=== PATIENT | female | born 1985 | race Caucasian/White ===

== ENCOUNTER → 2021-08-22 | Outpatient (CLI) | payer OTHER ==
--- NOTE | 2021-08-22 09:47 | US ---
EXAMINATION TYPE: US abdomen complete DATE OF EXAM: 08/22/2021 COMPARISON: NONE CLINICAL HISTORY: R74.8 Elevated Liver enzymes. EXAM MEASUREMENTS: Liver Length: 19.7 cm Gallbladder Wall: Surgically absent cm CBD: 1.0 cm Spleen: 12.0 x 4.0 cm Right Kidney: 12.4 x 6.4 x 4.3 cm Left Kidney: 11.9 x 6.0 x 5.5 cm Pancreas: wnl Liver: Increased attenuation Gallbladder: Surgically absent Evidence for sonographic Anand's sign: No CBD: wnl Spleen: wnl Right Kidney: No hydronephrosis or masses seen Left Kidney: No hydronephrosis or masses seen Upper IVC: wnl Abd Aorta: wnl The intrahepatic portion of the IVC and proximal abdominal aorta are within normal limits. There is no evidence of cholelithiasis. Common bile duct is unremarkable. The visualized portions of the torres creas are homogenous. The spleen is unremarkable. Kidneys are symmetric and free of hydronephrosis. No renal lesions are seen. IMPRESSION: Hepatic steatosis.
== END | disposition home or self-care (01) ==
LOC: RADUSWWP 08:28
PROVIDERS: ATTEND Family Medicine
DX: K76.0 Fatty (change of) liver, not elsewhere classified (principal); R74.8 Abnormal levels of other serum enzymes
CPT/HCPCS: 76700

== ENCOUNTER 2024-01-24 13:42 | Emergency (ER) | payer OTHER ==
--- NOTE | 2024-01-24 14:16 | ED ---
Skin/Abscess/FB HPI - General Chief complaint: Skin/Abscess/Foreign Body Stated complaint: L eye issue Time Seen by Provider: 01/24/24 13:59 Source: patient, RN notes reviewed Mode of arrival: ambulatory Limitations: no limitations - History of Present Illness Initial comments: This is a 38-year-old female presents emergency department for left eyelid sw elling and redness. Patient states that she noticed the swelling form about 2 days ago when she woke up this morning she had a difficult time opening her eye. Patient has a abscess on her left forehead which she has tried extracting at home. She denies photophobia, decrease in visual acuity, pain with extraocular eye movement, headaches, eye pressure, vomiting. Patient endorses nausea however states she took an at home test today that was positive. She wears contacts. - Related Data Previous Rx's Medication Instructions Recorded Amoxicillin 875 mg PO Q12HR #20 tablet 01/24/24 clindamycin HCL 300 mg PO QID #40 cap 01/24/24 Allergies Allergy/AdvReac Type Severity Reaction Status Date / Time acetaminophen [From Vicodin] AdvReac Nausea & Verified 01/24/24 14:30 Vomiting hydrocodone [From Vicodin] AdvReac Nausea & Verified 01/24/24 14:30 Vomiting Review of Systems ROS Statement: Those systems with pertinent positive or pertinent negative responses have been documented in the HPI. ROS Other: All systems not noted in ROS Statement are negative. Past Medical History Past Medical History: Diabetes Mellitus, Hyperlipidemia, Hypertension Past Surgical History: Cholecystectomy Past Psychological History: Anxiety, Depression Smoking Status: Current every day smoker General Exam Limitations: no limitations General appearance: alert, in no apparent distress Head exam: Present: atraumatic, normocephalic, normal inspection Expanded Eyelids: Erythema: Left (periorbital swelling), Swelling: Left Pupils: Regular, Round: Bilateral, Reactive: Bilateral Visual acuity (R) = 20/: 20 Visual acuity (L) = 20/: 20 ENT exam: Present: normal exam, mucous membranes moist Neck exam: Present: normal inspection. Absent: tenderness, meningismus, lymphadenopathy Respiratory exam: Present: normal lung sounds bilaterally. Absent: respiratory distress, wheezes, rales, rhonchi, stridor Cardiovascular Exam: Present: regular rate, normal rhythm, normal heart sounds. Absent: systolic murmur, diastolic murmur, rubs, gallop, clicks GI/Abdominal exam: Present: soft, normal bowel sounds. Absent: distended, tenderness, guarding, rebound, rigid Extremities exam: Present: normal inspection, full ROM, normal capillary refill. Absent: tenderness, pedal edema, joint swelling, calf tenderness Back exam: Present: normal inspection Neurological exam: Present: alert, oriented X3, CN II-XII intact Psychiatric exam: Present: normal affect, normal mood Skin exam: Present: warm, dry, intact, other (acne on the anterior left forehead) Course Vital Signs 01/24/24 13:57 Temperature 98.1 F Pulse Rate 99 Respiratory 20 Rate Blood Pressure 140/92 O2 Sat by Pulse 99 Oximetry Medical Decision Making - Medical Decision Making Was pt. sent in by a medical professional or institution (LEONIDES Mendoza, CONCRETE FORM SETTER, urgent care, hospital, or shelter...) When possible be specific @ -No Did you speak to anyone other than the patient for history (EMS, parent, family, police, friend...)? What history was obtained from this source @ -No Did you review nursing and triage notes (agree or disagree)? Why? @ -I reviewed and agree with nursing and triage notes Were old charts reviewed (outside hosp., previous admission, EMS record, old EKG, old radiological studies, urgent care reports/EKG's, shelter records)? Report findings @ -No old charts were reviewed Differential Diagnosis (chest pain, altered mental status, abdominal pain women, abdominal pain men, vaginal bleeding, weakness, fever, dyspnea, syncope, headache, dizziness, GI bleed, back pain, seizure, CVA, palpatations, mental health, musculoskeletal)? @ -Orbital cellulitis, preseptal cellulitis, superficial skin infection, acne, this is not an all-inclusive list. EKG interpreted by me (3pts min.). @ -none X-rays interpreted by me (1pt min.). @ -None done CT interpreted by me (1pt min.). @ -None done U/S interpreted by me (1pt. min.). @ -None done What testing was considered but not performed or refused? (CT, X-rays, U/S, labs)? Why? @ -None What meds were considered but not given or refused? Why? @ -None Did you discuss the management of the patient with other professionals (professionals i.e. , PA, CONCRETE FORM SETTER, lab, RT, psych nurse, social security benefits interviewer, wage analyst, teacher, certification officer, case briefer)? Give summary @ -No Was smoking cessation discussed for >3mins.? @ -No Was critical care preformed (if so, how long)? @ -No Were there social determinants of health that impacted care today? How? (Homelessness, low income, unemployed, alcoholism, drug addiction, transportation, low edu. Level, literacy, decrease access to med. care, group home, rehab)? @ -No Was there de-escalation of care discussed even if they declined (Discuss DNR or withdrawal of care, Hospice)? DNR status @ -No What co-morbidities impacted this encounter? (DM, HTN, Smoking, COPD, CAD, Cancer, CVA, ARF, Chemo, Hep., AIDS, mental health diagnosis, sleep apnea, morbid obesity)? @ -None Was patient admitted / discharged? Hospital course, mention meds given and route, prescriptions, significant lab abnormalities, going to OR and other pertinent info. @ -Discharged. 38-year-old female with complaint of left eye swelling. On examination patient noted to have periorbital edema and erythema on the anterior and lower eyelids. Visual acuity 20/20 bilaterally. Patient pupils are equal and reactive additionally there is no pain with extraocular movement or pain with globe pressure. Patient's laboratory results unremarkable for acute signs of infection. Due to patient reporting a positive at-home test CT of the head was deferred at this time. Strict return parameters discussed with the patient. Recommend that she follows with her primary care provider within the next 2 to 3 days for further evaluation. Patient will be sent home with clindamycin and amoxicillin for periorbital cellulitis. Patient is in agreement with this. Plan discussed with Dr. Weber Undiagnosed new problem with uncertain prognosis? @ -No Drug Therapy requiring intensive monitoring for toxicity (Heparin, Nitro, Insulin, Cardizem)? @ -No Were any procedures done? @ -No Diagnosis periorbital cellulitis Acute, or Chronic, or Acute on Chronic? @ -acute Uncomplicated (without systemic symptoms) or Complicated (systemic symptoms)? @ -uncomplicated Side effects of treatment? @ -No Exacerbation, Progression, or Severe Exacerbation? @ -No Poses a threat to life or bodily function? How? (Chest pain, [place], [place], pneumonia, PE, COPD, DKA, ARF, appy, cholecystitis, CVA, Diverticulitis, Homicidal, Suicidal, threat to staff... and all critical care pts) @ -No - Lab Data Result diagrams: 01/24/24 14:50 01/24/24 14:50 Lab Results 01/24/24 01/24/24 Range/Units 14:50 14:50 WBC 8.5 (3.8-10.6) k/uL RBC 4.55 (3.80-5.40) m/uL Hgb 12.5 (11.4-16.0) gm/dL Hct 38.9 (34.0-46.0) % MCV 85.5 (80.0-100.0) fL MCH 27.6 (25.0-35.0) pg MCHC 32.2 (31.0-37.0) g/dL RDW 13.8 (11.5-15.5) % Plt Count 314 (150-450) k/uL MPV 8.1 Neutrophils % 69 % Lymphocytes % 22 % Monocytes % 6 % Eosinophils % 1 % Basophils % 1 % Neutrophils # 5.8 (1.3-7.7) k/uL Lymphocytes # 1.9 (1.0-4.8) k/uL Monocytes # 0.5 (0-1.0) k/uL Eosinophils # 0.1 (0-0.7) k/uL Basophils # 0.1 (0-0.2) k/uL Sodium 134 L (137-145) mmol/L Potassium 3.9 (3.5-5.1) mmol/L Chloride 102 (98-107) mmol/L Carbon Dioxide 24 (22-30) mmol/L Anion Gap 8 mmol/L BUN 9 (7-17) mg/dL Creatinine 0.53 (0.52-1.04) mg/dL Est GFR (CKD-EPI)AfAm >90 (>60 ml/min/1.73 sqM) Est GFR (CKD-EPI)NonAf >90 (>60 ml/min/1.73 sqM) Glucose 296 H (74-99) mg/dL Calcium 8.4 (8.4-10.2) mg/dL Total Bilirubin 0.5 (0.2-1.3) mg/dL AST 35 (14-36) U/L ALT 38 H (4-34) U/L Alkaline Phosphatase 92 (38-126) U/L Total Protein 6.3 (6.3-8.2) g/dL Albumin 3.5 (3.5-5.0) g/dL Disposition Clinical Impression: Periorbital cellulitis Narrative: Please return to the Emergency Department if symptoms worsen or any other concerns. Complete full course of both antibiotics as prescribed. Recommend follow-up with your primary care provider within the next 2 to 3 days for further evaluation. Disposition: HOME SELF-CARE Condition: Good Instructions (If sedation given, give patient instructions): Periorbital Cellulitis in Adults (ED) Prescriptions: Amoxicillin 875 mg PO Q12HR #20 tablet clindamycin HCL 300 mg PO QID #40 cap Is patient prescribed a controlled substance at d/c from ED?: No Referrals: Deirdre Baker MD [Primary Care Provider] - 1-2 days Time of Disposition: 16:07
[2024-01-24 14:34] VITALS: RESP 20; TEMP 98.1
[2024-01-24 15:16] LABS: ALT 38 U/L (4-34); AST 35 U/L (14-36); African American GFR (CKD) >90 (>60 ml/min/1.73 sqM); Albumin 3.5 g/dL (3.5-5.0); Alkaline Phosphatase 92 U/L (38-126); Anion Gap 8 mmol/L; Blood Urea Nitrogen 9 mg/dL (7-17); Calcium 8.4 mg/dL (8.4-10.2); Carbon Dioxide 24 mmol/L (22-30); Chloride 102 mmol/L (98-107); Glucose 296 mg/dL (74-99); Non-African American GFR(CKD) >90 (>60 ml/min/1.73 sqM); Potassium 3.9 mmol/L (3.5-5.1); Sodium 134 mmol/L (137-145); Total Bilirubin 0.5 mg/dL (0.2-1.3); Total Protein 6.3 g/dL (6.3-8.2)
[2024-01-24 15:21] LABS: Basophils # (A) 0.1 k/uL (0-0.2); Basophils % (A) 1 %; Eosinophils # (A) 0.1 k/uL (0-0.7); Eosinophils % (A) 1 %; HCT 38.9 % (34.0-46.0); HGB 12.5 gm/dL (11.4-16.0); Lymphocytes # (A) 1.9 k/uL (1.0-4.8); Lymphocytes % (A) 22 %; MCH 27.6 pg (25.0-35.0); MCHC 32.2 g/dL (31.0-37.0); MCV 85.5 fL (80.0-100.0); Mean Platelet Volume 8.1; Monocytes # (A) 0.5 k/uL (0-1.0); Monocytes % (A) 6 %; Neutrophils # (A) 5.8 k/uL (1.3-7.7); Neutrophils % (A) 69 %; Platelet Count 314 k/uL (150-450); RBC 4.55 m/uL (3.80-5.40); RDW 13.8 % (11.5-15.5); WBC 8.5 k/uL (3.8-10.6)
[2024-01-24 17:18] VITALS: BP 143/93; PULSE 91
== END 2024-01-24 16:40 | disposition home or self-care (01) ==
LOC: EC 13:42
DX: L03.213 Periorbital cellulitis (principal); L70.9 Acne, unspecified; F17.200 Nicotine dependence, unspecified, uncomplicated; Z88.5 Allergy status to narcotic agent; Z88.6 Allergy status to analgesic agent
CPT/HCPCS: 36415; 80053; 85025; 99283

== ENCOUNTER 2024-01-30 21:06 | Emergency (ER) | payer OTHER ==
--- NOTE | 2024-01-30 22:19 | ED ---
Female Urogenital HPI - General Chief complaint: Vaginal Bleeding Stated complaint: Vaginal bleeding 5 weeks Time Seen by Provider: 01/30/24 22:00 Source: patient, RN notes reviewed Mode of arrival: ambulatory Limitations: no limitations - History of Present Illness Initial comments: 38-year-old female presenting with chief complaint of vaginal bleeding x 1 day. Patient states she is estimated to be 4 to 5 weeks . Denies abdominal pain, lightheadedness, syncope. States the bleeding is heavy and similar to a menstrual period. She has not had appointment with OB yet. She states she has a history of hypertension however states she has not taken her medication in quite some time. Denies chest pain, shortness of breath, he adache, or weakness, numbness, tingling. - Related Data Previous Rx's Medication Instructions Recorded Amoxicillin 875 mg PO Q12HR #20 tablet 01/24/24 clindamycin HCL 300 mg PO QID #40 cap 01/24/24 Allergies Allergy/AdvReac Type Severity Reaction Status Date / Time acetaminophen [From Vicodin] AdvReac Nausea & Verified 01/30/24 21:09 Vomiting hydrocodone [From Vicodin] AdvReac Nausea & Verified 01/30/24 21:09 Vomiting Review of Systems ROS Statement: Those systems with pertinent positive or pertinent negative responses have been documented in the HPI. ROS Other: All systems not noted in ROS Statement are negative. Past Medical History Past Medical History: Diabetes Mellitus, Hyperlipidemia, Hypertension Past Surgical History: Cholecystectomy Past Psychological History: Anxiety, Depression Smoking Status: Current every day smoker Past Alcohol Use History: None Reported Past Drug Use History: Methamphetamine General Exam Limitations: no limitations General appearance: alert, in no apparent distress Head exam: Present: atraumatic, normocephalic, normal inspection Eye exam: Present: normal appearance, PERRL, EOMI. Absent: scleral icterus, conjunctival injection, periorbital swelling ENT exam: Present: normal exam, mucous membranes moist Respiratory exam: Present: normal lung sounds bilaterally. Absent: respiratory distress, wheezes, rales, rhonchi, stridor Cardiovascular Exam: Present: regular rate, normal rhythm, normal heart sounds. Absent: systolic murmur, diastolic murmur, rubs, gallop, clicks GI/Abdominal exam: Present: soft, normal bowel sounds. Absent: distended, tenderness, guarding, rebound, rigid Neurological exam: Present: alert, oriented X3, CN II-XII intact Psychiatric exam: Present: normal affect, normal mood Skin exam: Present: warm, dry, intact, normal color. Absent: rash Course Vital Signs 01/30/24 21:07 Temperature 98.2 F Pulse Rate 106 H Respiratory 18 Rate Blood Pressure 168/119 O2 Sat by Pulse 100 Oximetry Medical Decision Making - Medical Decision Making Was pt. sent in by a medical professional or institution (, PA, WEBSPHERE PORTAL DEVELOPER, urgent care, hospital, or custodial...) When possible be specific @ -No Did you speak to anyone other than the patient for history (EMS, parent, family, police, friend...)? What history was obtained from this source @ -No Did you review nursing and triage notes (agree or disagree)? Why? @ -I reviewed and agree with nursing and triage notes Were old charts reviewed (outside hosp., previous admission, EMS record, old EKG, old radiological studies, urgent care reports/EKG's, custodial records)? Report findings @ -No old charts were reviewed Differential Diagnosis (chest pain, altered mental status, abdominal pain women, abdominal pain men, vaginal bleeding, weakness, fever, dyspnea, syncope, headache, dizziness, GI bleed, back pain, seizure, CVA, palpatations, mental health, musculoskeletal)? @ -Differential Vaginal Bleeding: Spontaneous , threatened , molar , ectopic , bloody show, incompetent cervix, abruptioplacenta, placenta previa, uterine rupture, dysfunctional uterine bleeding, hemorrhage, uterine fibroids, this is not meant to be an all-inclusive list. EKG interpreted by me (3pts min.). @ -None X-rays interpreted by me (1pt min.). @ -None done CT interpreted by me (1pt min.). @ -None done U/S interpreted by me (1pt. min.). @ -Ultrasound revealed small sac endometrium, nonspecific What testing was considered but not performed or refused? (CT, X-rays, U/S, labs)? Why? @ -None What meds were considered but not given or refused? Why? @ -None Did you discuss the management of the patient with other professionals (professionals i.e. , PA, WEBSPHERE PORTAL DEVELOPER, lab, RT, psych nurse, high school social studies tutor, x ray technologist, teacher, campus safety officer, top case assembler)? Give summary @ -No Was smoking cessation discussed for >3mins.? @ -No Was critical care preformed (if so, how long)? @ -No Were there social determinants of health that impacted care today? How? (Homelessness, low income, unemployed, alcoholism, drug addiction, transportation, low edu. Level, literacy, decrease access to med. care, usp, rehab)? @ -No Was there de-escalation of care discussed even if they declined (Discuss DNR or withdrawal of care, Hospice)? DNR status @ -No What co-morbidities impacted this encounter? (DM, HTN, Smoking, COPD, CAD, Canc er, CVA, ARF, Chemo, Hep., AIDS, mental health diagnosis, sleep apnea, morbid obesity)? @ -None Was patient admitted / discharged? Hospital course, mention meds given and route, prescriptions, significant lab abnormalities, going to OR and other pertinent info. @ -Patient was discharged. Patient was seen and evaluated for vaginal bleeding x 1 day at 5 weeks gestation. Denies abdominal pain. Vitals significant for blood pressure elevated, physical examination is unremarkable. Ultrasound revea ls nonspecific small sac and endometrium. Beta hCG 14.8. Labs unremarkable except for mildly elevated liver enzymes. Discussed diagnosis of threatened with patient and family. Advised to follow-up beta-hCG in 48 hours to trend. Strict alarm/return symptoms discussed with patient in detail and patient shows understanding and agrees with plan. Patient states her blood type is O+, and therefore is not a candidate for RhoGAM at this time. Patient discharged in stable condition. Case discussed with Dr. Morales Undiagnosed new problem with uncertain prognosis? @ -No Drug Therapy requiring intensive monitoring for toxicity (Heparin, Nitro, Insulin, Cardizem)? @ -No Were any procedures done? @ -No Diagnosis/symptom? @ -Threatened Acute, or Chronic, or Acute on Chronic? @ -Acute Uncomplicated (without systemic symptoms) or Complicated (systemic symptoms)? @ -Uncomplicated Side effects of treatment? @ -No Exacerbation, Progression, or Severe Exacerbation? @ -No Poses a threat to life or bodily function? How? (Chest pain, [place], [place], pneumonia, PE, COPD, DKA, ARF, appy, cholecystitis, CVA, Diverticulitis, Homicidal, Suicidal, threat to staff... and all critical care pts) @ -No - Lab Data Result diagrams: 01/30/24 23:00 01/30/24 23:00 Lab Results 01/30/24 01/30/24 Range/Units 23:00 23:00 WBC 7.4 (3.8-10.6) k/uL RBC 4.68 (3.80-5.40) m/uL Hgb 13.0 (11.4-16.0) gm/dL Hct 39.7 (34.0-46.0) % MCV 84.7 (80.0-100.0) fL MCH 27.7 (25.0-35.0) pg MCHC 32.7 (31.0-37.0) g/dL RDW 13.6 (11.5-15.5) % Plt Count 363 (150-450) k/uL MPV 7.5 Neutrophils % 56 % Lymphocytes % 35 % Monocytes % 4 % Eosinophils % 2 % Basophils % 1 % Neutrophils # 4.2 (1.3-7.7) k/uL Lymphocytes # 2.6 (1.0-4.8) k/uL Monocytes # 0.3 (0-1.0) k/uL Eosinophils # 0.1 (0-0.7) k/uL Basophils # 0.1 (0-0.2) k/uL Sodium 137 (137-145) mmol/L Potassium 3.9 (3.5-5.1) mmol/L Chloride 107 (98-107) mmol/L Carbon Dioxide 22 (22-30) mmol/L Anion Gap 8 mmol/L BUN 13 (7-17) mg/dL Creatinine 0.61 (0.52-1.04) mg/dL Est GFR (CKD-EPI)AfAm >90 (>60 ml/min/1.73 sqM) Est GFR (CKD-EPI)NonAf >90 (>60 ml/min/1.73 sqM) Glucose 206 H (74-99) mg/dL Calcium 8.7 (8.4-10.2) mg/dL Total Bilirubin 0.3 (0.2-1.3) mg/dL AST 47 H (14-36) U/L ALT 72 H (4-34) U/L Alkaline Phosphatase 111 (38-126) U/L Total Protein 6.7 (6.3-8.2) g/dL Albumin 3.8 (3.5-5.0) g/dL HCG, Quant 14.8 mIU/mL Disposition Clinical Impression: Threatened Disposition: HOME SELF-CARE Condition: Stable Instructions (If sedation given, give patient instructions): Threatened Miscarriage (ED) Additional Instructions: Please follow-up in 48 hours for repeat beta-hCG levels. Please return to the Emergency Department if symptoms worsen or any other concerns. Is patient prescribed a controlled substance at d/c from ED?: No Referrals: Deirdre Baker MD [Primary Care Provider] - 1-2 days Time of Disposition: 01:06
[2024-01-30 23:19] LABS: Basophils # (A) 0.1 k/uL (0-0.2); Basophils % (A) 1 %; Eosinophils # (A) 0.1 k/uL (0-0.7); Eosinophils % (A) 2 %; HCT 39.7 % (34.0-46.0); Lymphocytes # (A) 2.6 k/uL (1.0-4.8); Lymphocytes % (A) 35 %; MCH 27.7 pg (25.0-35.0); MCHC 32.7 g/dL (31.0-37.0); MCV 84.7 fL (80.0-100.0); Mean Platelet Volume 7.5; Monocytes # (A) 0.3 k/uL (0-1.0); Monocytes % (A) 4 %; Neutrophils # (A) 4.2 k/uL (1.3-7.7); Neutrophils % (A) 56 %; Platelet Count 363 k/uL (150-450); RBC 4.68 m/uL (3.80-5.40); RDW 13.6 % (11.5-15.5); WBC 7.4 k/uL (3.8-10.6)
[2024-01-30 23:44] LABS: ALT 72 U/L (4-34); AST 47 U/L (14-36); African American GFR (CKD) >90 (>60 ml/min/1.73 sqM); Albumin 3.8 g/dL (3.5-5.0); Alkaline Phosphatase 111 U/L (38-126); Anion Gap 8 mmol/L; Blood Urea Nitrogen 13 mg/dL (7-17); Calcium 8.7 mg/dL (8.4-10.2); Carbon Dioxide 22 mmol/L (22-30); Chloride 107 mmol/L (98-107); Glucose 206 mg/dL (74-99); Non-African American GFR(CKD) >90 (>60 ml/min/1.73 sqM); Potassium 3.9 mmol/L (3.5-5.1); Sodium 137 mmol/L (137-145); Total Bilirubin 0.3 mg/dL (0.2-1.3); Total Protein 6.7 g/dL (6.3-8.2)
[2024-01-31] LABS: HCG,Quantitative Serum 14.8 mIU/mL
--- NOTE | 2024-01-31 00:40 | US ---
EXAM: US First Trimester , Transabdominal and Transvaginal CLINICAL HISTORY: ITS.REASON US Reason: vaginal bleeding in TECHNIQUE: Real-time transabdominal and transvaginal obstetrical ultrasound of the maternal pelvis and a first trimester with image documentation. Transvaginal imaging was used for better evaluation of the fetus and adnexa. COMPARISON: No relevant prior studies available. FINDINGS: Gestation: Anechoic area seen in endometrial canal possibly representing the gestational sac or pseudo-sac. No yolk sac, pole or heart motion. Findings are nonspecific, could reflect very early IUP, failed and/or ectopic. Ovaries: Normal bilaterally. No cyst or torsion. Free fluid: No free fluid. Measurements: Uterus: 9.1 x 4.8 x 4.8cm Right Ovary: 3.1 x 2.1 x 1.9cm Left Ovary: 2.8 x 3.0 x 2.1cm IMPRESSION: 1. Small sac or pseudo-sac in the endometrium, nonspecific. 2. If beta hCG is positive, could reflect very early IUP, failed and/or ectopic. 3. Normal ovaries, no torsion or pelvic free fluid.
[2024-01-31 01:48] VITALS: BP 134/83; PULSE 98; RESP 16; TEMP 98.3
== END 2024-01-31 01:16 | disposition home or self-care (01) ==
LOC: EC 21:06
DX: O20.0 Threatened abortion (principal); O16.1 Unspecified maternal hypertension, first trimester; O26.611 Liver and biliary tract disorders in pregnancy, first trimester; R74.01 Elevation of levels of liver transaminase levels; O99.331 Smoking (tobacco) complicating pregnancy, first trimester; F17.200 Nicotine dependence, unspecified, uncomplicated; Z88.5 Allergy status to narcotic agent; Z88.6 Allergy status to analgesic agent; Z3A.01 Less than 8 weeks gestation of pregnancy
CPT/HCPCS: 36415; 76801; 80053; 84702; 85025; 86900; 86901; 99284

== ENCOUNTER → 2024-02-01 | Outpatient (CLI) | payer OTHER | END | disposition home or self-care (01) | LOC: LABWHC1 07:26 | PROVIDERS: ATTEND Physician Assistant | DX: O20.0 Threatened abortion (principal); Z3A.00 Weeks of gestation of pregnancy not specified | CPT/HCPCS: 36415; 84702 ==

== ENCOUNTER 2024-02-02 09:02 | Emergency (ER) | payer OTHER ==
[2024-02-02 09:10] VITALS: BP 150/97; PULSE 91; RESP 20; TEMP 98.1
--- NOTE | 2024-02-02 09:48 | ED ---
Female Urogenital HPI - General Chief complaint: Vaginal Bleeding Stated complaint: vaginal bleeding Time Seen by Provider: 02/02/24 09:06 Source: patient, RN notes reviewed Mode of arrival: ambulatory Limitations: no limitations - History of Present Illness Initial comments: This is a 38-year-old female who presents to the emergency department for vagin al bleeding in . Patient believes that she is 4 to 5 weeks and she is . States that the bleeding started a couple of days ago. She was evaluated here at that time and the ultrasound was unable to determine the cause of the bleeding. She did have her hCG count repeated yesterday and was advised that it was essentially unchanged. Bleeding stopped temporarily yesterday but then resumed again this morning. She was concerned because today she had pressure with the pain. Denies any nausea or vomiting. MD Complaint: vaginal bleeding - Related Data Previous Rx's Medication Instructions Recorded Amoxicillin 875 mg PO Q12HR #20 tablet 01/24/24 clindamycin HCL 300 mg PO QID #40 cap 01/24/24 Allergies Allergy/AdvReac Type Severity Reaction Status Date / Time acetaminophen [From Vicodin] AdvReac Nausea & Verified 02/02/24 09:06 Vomiting hydrocodone [From Vicodin] AdvReac Nausea & Verified 02/02/24 09:06 Vomiting Review of Systems ROS Statement: Those systems with pertinent positive or pertinent negative responses have been documented in the HPI. ROS Other: All systems not noted in ROS Statement are negative. Past Medical History Past Medical History: Diabetes Mellitus, Hyperlipidemia, Hypertension History of Any Multi-Drug Resistant Organisms: None Reported Past Surgical History: Cholecystectomy Past Psychological History: Anxiety, Depression Smoking Status: Current every day smoker Past Alcohol Use History: None Reported Past Drug Use History: Methamphetamine General Exam Limitations: no limitations General appearance: alert, in no apparent distress Head exam: Present: atraumatic, normocephalic, normal inspection Respiratory exam: Present: normal lung sounds bilaterally. Absent: respiratory distress, wheezes, rales, rhonchi, stridor Cardiovascular Exam: Present: regular rate, normal rhythm, normal heart sounds. Absent: systolic murmur, diastolic murmur, rubs, gallop, clicks Neurological exam: Present: alert, oriented X3, CN II-XII intact Psychiatric exam: Present: normal affect, normal mood Skin exam: Present: warm, dry, intact, normal color. Absent: rash Course Vital Signs 02/02/24 09:04 Temperature 98.1 F Pulse Rate 91 Respiratory 20 Rate Blood Pressure 150/97 O2 Sat by Pulse 99 Oximetry Medical Decision Making - Medical Decision Making This is a 38 year old female who presents to the emergency department for vagina l bleeding in . Was pt. sent in by a medical professional or institution? @ -No Did you speak to anyone other than the patient for history? @ -No Did you review nursing and triage notes? @ -Yes, and I agree, it is accurate with regards to the patient's symptoms. Were old charts reviewed? @ - ultrasound from 01/30/24 advising a small sac or pseudo sac in the endometrium that is nonspecific. They advised that this could reflect an early IUP versus failed and/or ectopic. Beta-hCG on 01/29 was 14.8. Beta-hCG on 01/31 was 15.1. Differential Diagnosis? @ -Differential Vaginal Bleeding: Spontaneous , threatened , molar , ectopic , incompetent cervix, placenta previa, uterine rupture, dysfunctional uterine bleeding, hemorrhage, uterine fibroids, malignancy, coagulopathy, PID, cervicitis, adenomyosis, vaginal trauma, this is not meant to be an all- inclusive list. EKG interpreted by me (3pts min.)? @ -Not obtained X-rays interpreted by me (1pt min.)? @ -Not obtained CT interpreted by me (1pt min.)? @ -Not obtained U/S interpreted by me (1pt. min.)? @ -Not obtained What testing was considered but not performed? (CT, X-rays, U/S, labs)? Why? @ -None What meds were considered but not given? Why? @ -None Did you discuss the management of the patient with other professionals? @ -No Did you reconcile home meds? @ -No Was smoking cessation discussed for >3mins.? @ -No Was critical care preformed (if so, how long)? @ -No Were there social determinants of health that impacted care today? How? (Homelessness, low income, unemployed, alcoholism, drug addiction, transportation, low edu. Level, literacy, decrease access to med. care, senior living, rehab)? @ -No Was there de-escalation of care discussed even if they declined? (Discuss DNR or withdrawal of care, Hospice)? @ -No What co-morbidities impacted this encounter? (DM, HTN, Smoking, COPD, CAD, Cancer, CVA, Hep., AIDS, mental health diagnosis, sleep apnea, morbid obesity)? @ - Was patient admitted / discharged? @ -Discharged. Ultrasound from 01/29 demonstrates a small sac or pseudo sac in the endometrium that is nonspecific. This could be an IUP, however failed pr egnancy and or ectopic is also a possibility. Based on her current beta-hCG, ultrasound was not repeated as it is not at the threshold where something would be identifiable on ultrasound. Beta-hCG today was 8.8. Advised that because this is decreasing, this is most consistent with a failed /incomplete . Patient is Rh+ based on blood work obtained on 01/29, and no RhoGAM is indicated. Urinalysis was ordered, however patient was unable to provide a urine sample prior to discharge. She was given a lab slip to have her hCG count repeated in another 48 hours. Otherwise advised follow-up with her IP ARCHITECT. Undiagnosed new problem with uncertain prognosis? @ -None Drug Therapy requiring intensive monitoring for toxicity (Heparin, Nitro, I nsulin, Cardizem)? @ -None Were any procedures done? @ -None Diagnosis/symptom? @ -Incomplete Acute, or Chronic, or Acute on Chronic? @ -Acute Uncomplicated (without systemic symptoms) or Complicated (systemic symptoms)? @ -Uncomplicated Side effects of treatment? @ -None Exacerbation, Progression, or Severe Exacerbation] @ -Not applicable Poses a threat to life or bodily function? @ -No Return precautions reviewed in depth, the patient is instructed to return to the emergency department with any new, worsening, or concerning symptoms. Patient verbalized understanding. This case was discussed in detail with the attending ED physician, Dr. Rodas. Presentation, findings, and treatment plan discussed in detail as well. - Lab Data Result diagrams: 02/02/24 09:42 02/02/24 09:42 Lab Results 02/02/24 02/02/24 Range/Units 09:42 09:42 WBC 5.9 (3.8-10.6) k/uL RBC 4.48 (3.80-5.40) m/uL Hgb 12.4 (11.4-16.0) gm/dL Hct 38.6 (34.0-46.0) % MCV 86.1 (80.0-100.0) fL MCH 27.8 (25.0-35.0) pg MCHC 32.2 (31.0-37.0) g/dL RDW 13.5 (11.5-15.5) % Plt Count 330 (150-450) k/uL MPV 8.2 Neutrophils % 55 % Lymphocytes % 34 % Monocytes % 5 % Eosinophils % 3 % Basophils % 1 % Neutrophils # 3.3 (1.3-7.7) k/uL Lymphocytes # 2.0 (1.0-4.8) k/uL Monocytes # 0.3 (0-1.0) k/uL Eosinophils # 0.2 (0-0.7) k/uL Basophils # 0.1 (0-0.2) k/uL Hypochromasia Slight Sodium 134 L (137-145) mmol/L Potassium 3.8 (3.5-5.1) mmol/L Chloride 105 (98-107) mmol/L Carbon Dioxide 18 L (22-30) mmol/L Anion Gap 11 mmol/L BUN 11 (7-17) mg/dL Creatinine 0.52 (0.52-1.04) mg/dL Est GFR (CKD-EPI)AfAm >90 (>60 ml/min/1.73 sqM) Est GFR (CKD-EPI)NonAf >90 (>60 ml/min/1.73 sqM) Glucose 337 H (74-99) mg/dL Calcium 8.4 (8.4-10.2) mg/dL Total Bilirubin 0.4 (0.2-1.3) mg/dL AST 43 H (14-36) U/L ALT 57 H (4-34) U/L Alkaline Phosphatase 129 H (38-126) U/L Total Protein 6.3 (6.3-8.2) g/dL Albumin 3.4 L (3.5-5.0) g/dL HCG, Quant 8.8 mIU/mL Disposition Clinical Impression: Incomplete miscarriage Disposition: HOME SELF-CARE Instructions (If sedation given, give patient instructions): Miscarriage (ED) Additional Instructions: Return to the emergency department with any new, worsening, or concerning symptoms. Take the lab slip to have your hCG count repeated in 48 hours. Follow up with your primary care provider in 1-2 days. Is patient prescribed a controlled substance at d/c from ED?: No Referrals: Deirdre Baker MD [Primary Care Provider] - 1-2 days Time of Disposition: 10:35
[2024-02-02 09:55] LABS: Basophils # (A) 0.1 k/uL (0-0.2); Basophils % (A) 1 %; Eosinophils # (A) 0.2 k/uL (0-0.7); Eosinophils % (A) 3 %; HCT 38.6 % (34.0-46.0); HGB 12.4 gm/dL (11.4-16.0); Hypochromasia Slight; Lymphocytes % (A) 34 %; MCH 27.8 pg (25.0-35.0); MCHC 32.2 g/dL (31.0-37.0); MCV 86.1 fL (80.0-100.0); Mean Platelet Volume 8.2; Monocytes # (A) 0.3 k/uL (0-1.0); Monocytes % (A) 5 %; Neutrophils # (A) 3.3 k/uL (1.3-7.7); Neutrophils % (A) 55 %; Platelet Count 330 k/uL (150-450); RBC 4.48 m/uL (3.80-5.40); RDW 13.5 % (11.5-15.5); WBC 5.9 k/uL (3.8-10.6)
[2024-02-02 10:04] LABS: ALT 57 U/L (4-34); AST 43 U/L (14-36); African American GFR (CKD) >90 (>60 ml/min/1.73 sqM); Albumin 3.4 g/dL (3.5-5.0); Alkaline Phosphatase 129 U/L (38-126); Anion Gap 11 mmol/L; Blood Urea Nitrogen 11 mg/dL (7-17); Calcium 8.4 mg/dL (8.4-10.2); Carbon Dioxide 18 mmol/L (22-30); Chloride 105 mmol/L (98-107); Glucose 337 mg/dL (74-99); Non-African American GFR(CKD) >90 (>60 ml/min/1.73 sqM); Potassium 3.8 mmol/L (3.5-5.1); Sodium 134 mmol/L (137-145); Total Bilirubin 0.4 mg/dL (0.2-1.3); Total Protein 6.3 g/dL (6.3-8.2)
[2024-02-02 10:20] LABS: HCG,Quantitative Serum 8.8 mIU/mL
== END 2024-02-02 11:00 | disposition home or self-care (01) ==
LOC: EC 09:02
DX: O46.91 Antepartum hemorrhage, unspecified, first trimester (principal); N93.9 Abnormal uterine and vaginal bleeding, unspecified; O99.331 Smoking (tobacco) complicating pregnancy, first trimester; F17.200 Nicotine dependence, unspecified, uncomplicated; Z88.5 Allergy status to narcotic agent; Z88.8 Allergy status to other drugs, medicaments and biological substances; Z90.49 Acquired absence of other specified parts of digestive tract; Z3A.01 Less than 8 weeks gestation of pregnancy
CPT/HCPCS: 36415; 80053; 84702; 85025; 99284

== ENCOUNTER → 2024-02-14 | Outpatient (CLI) | payer OTHER ==
--- NOTE | 2024-02-14 20:23 | US ---
EXAMINATION TYPE: Transabdominal DATE OF EXAM: 02/14/2024 2:31 PM COMPARISON: 01/30/2024 CLINICAL INDICATION: Female, 38 years old with history of THREATENED OB O200; Heavy bleeding that las radha 1 week; Hx HTN and DM EXAM PERFORMED: Transvaginal (TV) and Transabdominal (TA) EXAM MEASUREMENTS: GESTATIONAL AGE / DATING Physician Established: (7 weeks/3 days) EDC: 10/09/2024 Dates by LMP: ( weeks/ days) EDC: Dates by First Scan: ( weeks/ days) EDC: Dates by Current Scan for: No IUP seen at this time ( weeks/ days) EDC: MATERNAL ANATOMY Uterus: 9.1 x 3.8 x 6.5 cm Right Ovary: 4.1 x 2.9 x 3.9 cm Left Ovary: 2.8 x 2.4 x 2.5 cm Post CDS / Adnexa: No Presence of free fluid: No Presence of corpus luteal cyst: No; Dominant follicle right ovary Presence of subchorionic bleed: No GESTATION / SURVEY CRL: NA ( weeks/ days) MSD: NA ( weeks/ days) Yolk Sac (normal less than 6mm): NA Heart Rate: NA bpm Rhythm: NA IUP: No IUP seen at this time Nuchal Translucency 10-14wks (normal less than 3mm): NA Age Appropriate Anatomy Cord Insertion: NA Limbs: NA Calvarium: NA Date of LMP: Unknown Beta HcG (if available): 8 No evidence of on this exam, intramural fibroid anterior mid uterus = 2.7 x 1.8 x 3.0 cm Nabothian cysts noted within cervix IMPRESSION: 1. No evidence of intrauterine gestational sac. This can be seen in early , ectopic pregnan cy and spontaneous . Favor spontaneous . Follow up pelvic ultrasound in 5-7 days and serial beta hCG studies are recommended. 2. Fibroid changes of the uterus.
== END | disposition home or self-care (01) ==
LOC: RADUSWWP 13:56
PROVIDERS: ATTEND Family Medicine
DX: O20.0 Threatened abortion (principal); I10 Essential (primary) hypertension; E11.9 Type 2 diabetes mellitus without complications; D25.9 Leiomyoma of uterus, unspecified; Z3A.08 8 weeks gestation of pregnancy
CPT/HCPCS: 76801; 76817

== ENCOUNTER 2024-04-17 13:13 | Emergency (ER) | payer OTHER ==
--- NOTE | 2024-04-17 13:45 | ED ---
Extremity Problem HPI - General Chief complaint: Extremity Problem,Nontraumatic Stated complaint: R knee pain Time Seen by Provider: 04/17/24 13:44 Source: patient, RN notes reviewed Mode of arrival: ambulatory Limitations: no limitations - History of Present Illness Initial comments: 39-year-old female presenting to the ER with a chief complaint of right knee pain and swelling. Patient states this been an ongoing problem for the past 2 to 3 months. She states it has been swollen since a fall on some stairs. Patient has been taking [id number]-oph-zustlia ibuprofen and Advil with mild relief. She denies any paresthesias or new injuries. Denies fevers, chills, calf tenderness or other complaints. - Related Data Previous Rx's Medication Instructions Recorded Amoxicillin 875 mg PO Q12HR #20 tablet 01/24/24 clindamycin HCL 300 mg PO QID #40 cap 01/24/24 Allergies Allergy/AdvReac Type Severity Reaction Status Date / Time acetaminophen [From Vicodin] AdvReac Nausea & Verified 04/17/24 13:18 Vomiting hydrocodone [From Vicodin] AdvReac Nausea & Verified 04/17/24 13:18 Vomiting Review of Systems ROS Statement: Those systems with pertinent positive or pertinent negative responses have been documented in the HPI. ROS Other: All systems not noted in ROS Statement are negative. Past Medical History Past Medical History: Diabetes Mellitus, Hyperlipidemia, Hypertension History of Any Multi-Drug Resistant Organisms: None Reported Past Surgical History: Cholecystectomy Past Psychological History: Anxiety, Depression Smoking Status: Current every day smoker Past Alcohol Use History: None Reported Past Drug Use History: Methamphetamine General Exam Limitations: no limitations General appearance: alert, in no apparent distress Respiratory exam: Present: normal lung sounds bilaterally. Absent: respiratory distress, wheezes, rales, rhonchi, stridor Cardiovascular Exam: Present: regular rate, normal rhythm, normal heart sounds. Absent: systolic murmur, diastolic murmur, rubs, gallop, clicks Extremities exam: Present: normal inspection, other (Mild edema to right knee. No erythema, bruising, rashes or wounds. 2+ right dorsalis pedis pulse. Patient has full active range of motion.) Neurological exam: Present: alert, oriented X3, CN II-XII intact Skin exam: Present: warm, dry, intact, normal color. Absent: rash Course Vital Signs 04/17/24 04/17/24 13:16 14:18 Temperature 98.0 F 98.1 F Pulse Rate 99 86 Respiratory 16 18 Rate Blood Pressure 149/80 144/77 O2 Sat by Pulse 98 98 Oximetry Medical Decision Making - Medical Decision Making Was pt. sent in by a medical professional or institution (, LEONIDES, CLINICAL REIMBURSEMENT SPECIALIST, urgent care, hospital, or fci...) When possible be specific @ -No Did you speak to anyone other than the patient for history (EMS, parent, family, police, friend...)? What history was obtained from this source @ -No Did you review nursing and triage notes (agree or disagree)? Why? @ -I reviewed and agree with nursing and triage notes Were old charts reviewed (outside hosp., previous admission, EMS record, old EKG, old radiological studies, urgent care reports/EKG's, fci records)? Report findings @ -No old charts were reviewed Differential Diagnosis (chest pain, altered mental status, abdominal pain women, abdominal pain men, vaginal bleeding, weakness, fever, dyspnea, syncope, headache, dizziness, GI bleed, back pain, seizure, CVA, palpatations, mental health, musculoskeletal)? @ -Differential Musculoskeletal:Muscular strain, contusion, ligament sprain, fracture, arthritis, septic arthritis, bursitis, cellulitis, muscle spasm, nerve compression, DVT, arterial occlusion, herpes zoster, electrolyte abnormality, tumor.... This is not meant to be in all inclusive list EKG interpreted by me (3pts min.). @ -None X-rays interpreted by me (1pt min.). @ -Right knee x-ray interpreted me negative for acute osseous process. There is an effusion suprapatellar. CT interpreted by me (1pt min.). @ -None done U/S interpreted by me (1pt. min.). @ -None done What testing was considered but not performed or refused? (CT, X-rays, U/S, labs)? Why? @ -None What meds were considered but not given or refused? Why? @ -None Did you discuss the management of the patient with other professionals (professionals i.e. LEONIDES Mendoza, CLINICAL REIMBURSEMENT SPECIALIST, lab, RT, psych nurse, social service manager, aluminum fabrication supervisor, teacher, targeting acquisition officer, pillowcase maker)? Give summary @ -No Was smoking cessation discussed for >3mins.? @ -No Was critical care preformed (if so, how long)? @ -No Were there social determinants of health that impacted care today? How? (Homelessness, low income, unemployed, alcoholism, drug addiction, transportation, low edu. Level, literacy, decrease access to med. care, residential, rehab)? @ -No Was there de-escalation of care discussed even if they declined (Discuss DNR or withdrawal of care, Hospice)? DNR status @ -No What co-morbidities impacted this encounter? (DM, HTN, Smoking, COPD, CAD, Cancer, CVA, ARF, Chemo, Hep., AIDS, mental health diagnosis, sleep apnea, morbid obesity)? @ -None Was patient admitted / discharged? Hospital course, mention meds given and route, prescriptions, significant lab abnormalities, going to OR and other pertinent info. @ -Discharge. 39-year-old female presented to the ER with a chief complaint of right knee pain. History and physical exam completed. Vitals stable. Right lower extremity neurovascular intact. There was edema to right knee. No erythema, bruising, rash or wounds. Patient has full active range of motion. X-rays obtained negative for acute osseous process. There is a suprapatellar effusion. Upon reevaluation, patient resting comfortably in exam room in no signs of acute distress. Results discussed with patient, all questions answered. Advised her to follow-up closely with PCP and orthopedics for further evaluation. Strict return parameters discussed. Conservative treatment options discussed. Patient discharged in stable condition. Patient verbally expressed understanding and agreement with care plan. Case discussed with ED attending, Dr. Kimbrough. Undiagnosed new problem with uncertain prognosis? @ -No Drug Therapy requiring intensive monitoring for toxicity (Heparin, Nitro, Insulin, Cardizem)? @ -No Were any procedures done? @ -No Diagnosis/symptom? @ -Knee pain/knee effusion Acute, or Chronic, or Acute on Chronic? @ -Acute Uncomplicated (without systemic symptoms) or Complicated (systemic symptoms)? @ -Uncomplicated Side effects of treatment? @ -No Exacerbation, Progression, or Severe Exacerbation? @ -No Poses a threat to life or bodily function? How? (Chest pain, [place], [place], pneumonia, PE, COPD, DKA, ARF, appy, cholecystitis, CVA, Diverticulitis, Homicidal, Suicidal, threat to staff... and all critical care pts) @ -No - Radiology Data Radiology results: report reviewed, image reviewed Disposition Clinical Impression: Knee effusion, Knee pain Disposition: HOME SELF-CARE Condition: Stable Instructions (If sedation given, give patient instructions): Knee Pain (ED) Additional Instructions: Please follow-up with orthopedics. Return to the ER for any new or worsening concerns. Is patient prescribed a controlled substance at d/c from ED?: No Referrals: Deirdre Baker MD [Primary Care Provider] - 1-2 days Yaw Clemens DO [Doctor of Osteopathic Medicine] - 1-2 days Time of Disposition: 14:10
--- NOTE | 2024-04-17 13:57 | XR ---
EXAMINATION TYPE: XR knee complete RT DATE OF EXAM: 04/17/2024 COMPARISON: NONE HISTORY: Pain TECHNIQUE: Three views are submitted. FINDINGS: Joint spaces are preserved. Osseous structures are intact. No acute fracture seen. Moderate suprap atellar bursal fluid collection. Mild narrowing of the medial compartment knee joint with marginal sp urring of the patella. IMPRESSION: 1. No acute fracture or dislocation. There is moderate suprapatellar bursal fluid collection which i s nonspecific.
[2024-04-17 14:20] VITALS: BP 144/77; PULSE 86; RESP 18; TEMP 98.1
== END 2024-04-17 14:18 | disposition home or self-care (01) ==
LOC: EC 13:13
DX: M25.561 Pain in right knee (principal); F17.200 Nicotine dependence, unspecified, uncomplicated; Z88.5 Allergy status to narcotic agent; Z88.6 Allergy status to analgesic agent
CPT/HCPCS: 99283

== ENCOUNTER 2024-05-20 21:19 | Emergency (ER) | payer OTHER ==
[2024-05-20 21:31] VITALS: RESP 18
--- NOTE | 2024-05-20 23:02 | ED ---
General Adult HPI - General Chief complaint: Skin/Abscess/Foreign Body Stated complaint: R Eye Swollen/Pain Time Seen by Provider: 05/20/24 22:43 Source: patient Mode of arrival: ambulatory Limitations: no limitations - History of Present Illness Initial comments: 39-year-old female presenting with chief complaint of pain and swelling to the right lower eyelid. Has been ongoing for several days. No periorbital swelling or swelling of the upper eyelid. No injury or trauma. She is also having pain and swelling just adjacent to the knee right cheek near her ear. There is a painful lump. She has tried squeezing it but has been unable to express any discharge. No fever. No difficulty with extraocular motions. No ear pain. No vision changes. - Related Data Previous Rx's Medication Instructions Recorded Amoxicillin 875 mg PO Q12HR #20 tablet 01/24/24 clindamycin HCL 300 mg PO QID #40 cap 01/24/24 Cephalexin [Keflex] 500 mg PO Q6HR 7 Days #28 cap 05/20/24 Sulfamethox-Tmp 800-160Mg [Bactrim 1 tab PO Q12HR 7 Days #14 tab 05/20/24 DS 800-160 mg] Allergies Allergy/AdvReac Type Severity Reaction Status Date / Time acetaminophen [From Vicodin] AdvReac Nausea & Verified 05/20/24 21:31 Vomiting hydrocodone [From Vicodin] AdvReac Nausea & Verified 05/20/24 21:31 Vomiting Review of Systems ROS Statement: Those systems with pertinent positive or pertinent negative responses have been documented in the HPI. ROS Other: All systems not noted in ROS Statement are negative. 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 Absent: meningismus Respiratory exam: Absent: respiratory distress Cardiovascular Exam: Present: regular rate Neurological exam: Present: alert, oriented X3 Psychiatric exam: Present: normal affect, normal mood Expanded Type of lesion: Present: abscess (Patient does have a small indurated abscess to the right lateral cheek near the ear) Course Vital Signs 05/20/24 21:27 Temperature 98.0 F Pulse Rate 99 Respiratory 18 Rate Blood Pressure 136/91 O2 Sat by Pulse 100 Oximetry Medical Decision Making - Medical Decision Making Was pt. sent in by a medical professional or institution (, [facility], MACHINE FEEDER FLOORPERSON, urgent care, hospital, or senior living...) When possible be specific @ -No Did you speak to anyone other than the patient for history (EMS, parent, family, police, friend...)? What history was obtained from this source @ -No Did you review nursing and triage notes (agree or disagree)? Why? @ -I reviewed and agree with nursing and triage notes Were old charts reviewed (outside hosp., previous admission, EMS record, old EKG, old radiological studies, urgent care reports/EKG's, senior living records)? Report findings @ -No old charts were reviewed Differential Diagnosis (chest pain, altered mental status, abdominal pain women, abdominal pain men, vaginal bleeding, weakness, fever, dyspnea, syncope, headache, dizziness, GI bleed, back pain, seizure, CVA, palpatations, mental health, musculoskeletal)? @ -Differential includes hordeolum, chalazion, periorbital cellulitis, this is not an all-inclusive list EKG interpreted by me (3pts min.). @ -As above X-rays interpreted by me (1pt min.). @ -None done CT interpreted by me (1pt min.). @ -None done U/S interpreted by me (1pt. min.). @ -None done What testing was considered but not performed or refused? (CT, X-rays, U/S, labs)? Why? @ -None What meds were considered but not given or refused? Why? @ -None Did you discuss the management of the patient with other professionals (professionals i.e. [facility] Mendoza, MACHINE FEEDER FLOORPERSON, lab, RT, psych nurse, social media marketing analyst, slip presser, teacher, postal sorting officer, case supervisor)? Give summary @ -No Was smoking cessation discussed for >3mins.? @ -No Was critical care preformed (if so, how long)? @ -No Were there social determinants of health that impacted care today? How? (Homelessness, low income, unemployed, alcoholism, drug addiction, transportation, low edu. Level, literacy, decrease access to med. care, alf, rehab)? @ -No Was there de-escalation of care discussed even if they declined (Discuss DNR or withdrawal of care, Hospice)? DNR status @ -No What co-morbidities impacted this encounter? (DM, HTN, Smoking, COPD, CAD, Cancer, CVA, ARF, Chemo, Hep., AIDS, mental health diagnosis, sleep apnea, morbid obesity)? @ -None Was patient admitted / discharged? Hospital course, mention meds given and route, prescriptions, significant lab abnormalities, going to OR and other pertinent info. @ -39-year-old female presenting with chief complaint pain and swelling to the right lower eyelid as well as pain and swelling to the right lateral cheek. On exam there is a hordeolum present. There is also a small indurated abscess to the right lateral cheek. Patient will be given erythromycin ointment for stye as well as Keflex and Bactrim for facial abscess. Facial abscess too indurated to drain at this time. educated on wound care with hot compresses. Discharged. Follow-up with PCP. Report back to ER with any new or worsening symptoms. Discussed return parameters and answered all questions. Patient conveyed verbal understanding and agreed to the plan. I discussed this case in detail with my attending Dr. Morales Undiagnosed new problem with uncertain prognosis? @ -No Drug Therapy requiring intensive monitoring for toxicity (Heparin, Nitro, Insulin, Cardizem)? @ -No Were any procedures done? @ -No Diagnosis/symptom? @ -Hordeolum, facial abscess Acute, or Chronic, or Acute on Chronic? @ -Acute Uncomplicated (without systemic symptoms) or Complicated (systemic symptoms)? @ -Uncomplicated Side effects of treatment? @ -No Exacerbation, Progression, or Severe Exacerbation? @ -No Poses a threat to life or bodily function? How? (Chest pain, [place], [place], pneumonia, PE, COPD, DKA, ARF, appy, cholecystitis, CVA, Diverticulitis, Homicidal, Suicidal, threat to staff... and all critical care pts) @ -No Disposition Clinical Impression: Hordeolum, Facial abscess Disposition: HOME SELF-CARE Condition: Good Instructions (If sedation given, give patient instructions): Stye (ED), Abscess (ED) Additional Instructions: Follow-up with PCP. Report back to ER with any new or worsening symptoms. Apply erythromycin eye ointment to the affected eye 4 times daily for 7 days. Take antibiotics as prescribed. Use warm compresses to help draw pus to the surface, and then gently squeeze the area to help express it. Prescriptions: Sulfamethox-Tmp 800-160Mg [Bactrim DS 800-160 mg] 1 tab PO Q12HR 7 Days #14 tab Cephalexin [Keflex] 500 mg PO Q6HR 7 Days #28 cap Is patient prescribed a controlled substance at d/c from ED?: No Referrals: Deirdre Baker MD [Primary Care Provider] - 1-2 days Time of Disposition: 23:02
[2024-05-20] MEDS: SULFAMETH-TMP DS STARTER PACK 2 TAB BTL PO STA (23:17)
[2024-05-20] MEDS: ERYTHROMYCIN 5 MG/GM OPHTH OINT 3.5 GM TUBE RIGHT EYE ONE (23:17)
[2024-05-20] MEDS: CEPHALEXIN 500MG STARTER PACK 4 CAP BTL PO STA (23:17)
[2024-05-20 23:25] VITALS: BP 130/90; PULSE 90; TEMP 98.1
== END 2024-05-20 23:25 | disposition home or self-care (01) ==
LOC: EC 21:19
DX: R52 Pain, unspecified
CPT/HCPCS: 99283